=== PATIENT | male | born 1960 | race Caucasian/White ===

== ENCOUNTER 2019-04-15 19:44 | Emergency (ER) | payer MEDICAID, OTHER ==
[~2019-04-15] VITALS: Ht 160 cm; Wt 64.2 kg
[~2019-04-15 19:44] MED LIST: BACI28.34 TOP; IBUP-1542 PO
[2019-04-15 19:46] VITALS: Ht 160 cm; Wt 64.2 kg
[2019-04-15] MEDS ORDERED: BACITRACIN 0.5%/ZINC 28.35 GM OINT TOP ONE (21:30)
[2019-04-15] MEDS ORDERED: IBUPROFEN 600 MG TAB PO ONE (21:30)
[2019-04-15 22:15] VITALS: BP 154/80; PULSE 60; RESP 18
== END 2019-04-15 22:15 | disposition home or self-care (01) ==
LOC: FTE 19:44
DX: S61.011A Laceration without foreign body of right thumb without damage to nail, initial encounter (principal); I10 Essential (primary) hypertension; E11.9 Type 2 diabetes mellitus without complications; W26.9XXA Contact with unspecified sharp object(s), initial encounter; Y92.9 Unspecified place or not applicable
CPT/HCPCS: 12001; Z7502; Z7610

== ENCOUNTER 2019-04-17 09:26 | Emergency (ER) | payer MEDICAID ==
[~2019-04-17] VITALS: Wt 60.0 kg
[2019-04-17 09:28] VITALS: BP 125/58; PULSE 78; RESP 18
== END 2019-04-17 10:20 | disposition home or self-care (01) ==
LOC: FTE 09:26
DX: Z48.01 Encounter for change or removal of surgical wound dressing (principal)
CPT/HCPCS: 99281